=== PATIENT | male | born 1975 ===

== ENCOUNTER 2017-08-28 20:29 | Emergency (ER) | payer OTHER ==
[2017-08-28 20:47] VITALS: TEMP 97.9; O2SAT 98
[2017-08-28] MEDS ORDERED: Oxycodone/Acetaminophen 5/325 mg Tab PO STA (20:59)
[2017-08-28] MEDS ORDERED: Oxycodone/Acetaminophen 5/325 mg Tab ONE (21:02)
--- NOTE | 2017-08-28 21:16 | C.PDOC ---
History Of Present Illness 42 y/o male presents to ED with complaints of swelling and pain to left arm status post tripping and falling while holding large water cooler jug. Patient states gallon of water fell on left arm. Patient reports taking Motrin last at 1pm today but came for evaluation because swelling and pain worsened. Patient denies numbness, head injury, loc, nausea, vomiting or hand pain. Patient is right hand dominant. Time Seen by Provider: 08/28/17 20:56 Chief Complaint (Nursing): Upper Extremity Problem/Injury History Per: Patient History/Exam Limitations: no limitations Onset/Duration Of Symptoms: Hrs Current Symptoms Are (Timing): Still Present Quality: "Pain" Past Medical History Reviewed: Historical Data, Nursing Documentation, Vital Signs Vital Signs: Last Vital Signs Temp 97.9 F 08/28/17 20:41 Pulse 78 08/28/17 20:41 Resp 20 08/28/17 20:41 BP 174/107 H 08/28/17 20:41 Pulse Ox 98 08/28/17 21:38 - Medical History PMH: No Chronic Diseases Surgical History: No Surg Hx Family History: States: No Known Family Hx - Social History Hx Alcohol Use: No Hx Substance Use: No - Immunization History Hx Tetanus Toxoid Vaccination: No Hx Influenza Vaccination: Yes Hx Pneumococcal Vaccination: No Review Of Systems Eyes: Negative for: Vision Change Gastrointestinal: Negative for: Nausea, Vomiting Musculoskeletal: Positive for: Arm Pain, Hand Pain Skin: Positive for: Bruising. Negative for: Rash Neurological: Negative for: Weakness, Numbness Physical Exam - Physical Exam Appears: Non-toxic, No Acute Distress Skin: Warm, Dry, No Rash, Ecchymosis (Left elbow) Head: Atraumatic, Normacephalic Eye(s): bilateral: Normal Inspection, EOMI Oral Mucosa: Moist Neck: Normal ROM, Supple Chest: Symmetrical Cardiovascular: Rhythm Regular Extremity: No Normal ROM (limited to left elbow secondary to pain), Tenderness ( Tenderness to left lateral elbow), Capillary Refill (<2 seconds), No Deformity, Swelling (Above left elbow extending to forearm), Other (ecchymosis to left elbow) Extremity: Left: Limited ROM To Joint (Left arm secondary to pain ) Pulses: Left Radial: Normal, Right Radial: Normal Neurological/Psych: Oriented x3, Normal Speech, Normal Motor, Normal Sensation Gait: Steady ED Course And Treatment O2 Sat by Pulse Oximetry: 98 (RA) Pulse Ox Interpretation: Normal Medical Decision Making Medical Decision Making: Impression: Elbow injury Plan: Left elbow and Left forearm xray ordered. Percocet administered. Ice bag applied Progress: Xray shows distal humeral fracture minimally displaced. [address] Plummer to discuss elbow fracture. Recommends splint and patient can followup in office Friday 09/01. Posterior orthoglass aplint applied by PA, and patient remained NV intact. Patient given verbal and written instructions for follow up. Patient expressed understanding. Rx given. Disposition Counseled Patient/Family Regarding: Diagnosis, Need For Followup, Rx Given - Disposition Referrals: Piyush Plummer III, MD [Staff Provider] - [facility] [Outside] [facility] [Outside] Disposition: HOME/ ROUTINE Disposition Time: 22:05 Condition: STABLE Additional Instructions: Your xray shows Elbow fracture. It is very important you follow up with orthopedic Friday 09/01 in office. Please call to make appointment. If you are unable to see this orthopedic, you can follow up in the clinic, Or call psychometric examiner service for any assistance [phone]. A splint has been applied which is a temporary cast. Do not wet splint, keep out of bath, and consider plastic bag. Take pain medication as needed. Seek medical attention if develop any numbness or pins and needle sensation. George radiografa muestra lilia fractura de codo. Es muy importante que realice un seguimiento ortopdico el viernes 09/01 en la oficina. Por favor llame para hacer lilia slick. Si no puede vance truong tratamiento ortopdico, puede realizar un seguimiento en la clnica o llamar al servicio de conserjera para obtener asistencia [phone]. Se fierro aplicado lilia frula que es un yeso temporal. No mojar la frula, mantener fuera del elizabeth y considerar lilia bolsa de plstico. [place] analgsicos segn sea necesario. Busque atencin mdica si desarrolla adormecimiento o hormigueo y sensacin de aguja. Prescriptions: Ibuprofen [Motrin] 600 mg PO Q8 #30 tab oxyCODONE/Acetaminophen [Percocet 5/325 mg Tab] 1 tab PO Q8 PRN #20 tab PRN Reason: Pain, Severe (8-10) Instructions: Elbow Fracture (DC), Cast Care Forms: [employer] (Sammarinese), Work Excuse Print Language: EGYPTIAN - POA Present On Arrival: Falls Or Trauma - Clinical Impression Clinical Impression: Humerus distal fracture - PA / BUSINESS EXECUTIVE / Resident Statement MD/DO has reviewed & agrees with the documentation as recorded. - Scribe Statement The provider has reviewed the documentation as recorded by the Daysi Horvath All medical record entries made by the Daysi were at my direction and personally dictated by me. I have reviewed the chart and agree that the record accurately reflects my personal performance of the history, physical exam, medical decision making, and the department course for this patient. I have also personally directed, reviewed, and agree with the discharge instructions and disposition. Procedures - Orthopedic Splinting/Casting Injury #1 Side: left Upper Extremity Injury Location: elbow Upper Extremity Immobilizer: posterior splint (orthoglass 5", garcia 6", and arm sling)
[2017-08-28 22:12] VITALS: BP 157/89; PULSE 89; RESP 16
--- NOTE | 2017-08-29 12:58 | RAD ---
PROCEDURE: Radiographs of the left elbow. HISTORY: pain s.p fall COMPARISON: No prior. FINDINGS: BONES: Small bony fragment adjacent to the olecranon likely fracture JOINTS: Normal. No osteoarthritis. SOFT TISSUES: Soft tissue swelling attests to the acuity of the fracture. JOINT EFFUSION: None. OTHER FINDINGS: None IMPRESSION: Acute fracture of the olecranon with associated soft tissue swelling. The finding is marked on the study for review.
--- NOTE | 2017-08-29 15:33 | RAD ---
PROCEDURE: Radiographs Left Forearm HISTORY: pain s.p fall COMPARISON: August 28, 2017. TECHNIQUE: Frontal and lateral views obtained. FINDINGS: BONES: Fracture fragment adjacent to the olecranon. JOINT SPACES: Unremarkable. OTHER FINDINGS: Soft tissue swelling noted. IMPRESSION: Proximal ulnar fracture/ avulsion from the olecranon. Soft tissue swelling attests to the acuity of the fracture.
== END 2017-08-28 22:50 | disposition home or self-care (01) ==
LOC: C.ER 20:29
DX: S42.402A Unspecified fracture of lower end of left humerus, initial encounter for closed fracture (principal); W01.0XXA Fall on same level from slipping, tripping and stumbling without subsequent striking against object, initial encounter; Y92.9 Unspecified place or not applicable